=== PATIENT | male | born 1995 | race African-American/Black ===

== ENCOUNTER → 2017-08-21 | Outpatient (REF) | payer OTHER ==
[~2017-08-21] MED LIST: FLON1SPR; IBUP-1022 PO; MUCI600T37 PO; SUDA1TAB3 PO; ZYRT10TA2 PO
[2017-08-21 10:34] LABS: NON PROGRESSIVE MOTILITY (c) 11 %; PROGRESSIVE MOTILITY (a) 28 % (>=32); TOTAL MOTILITY 39 % (>=40)
[2017-08-21 10:35] LABS: % NORMAL FORMS 6 % (>=4); IMMOTILITY 61 %; SPERM# 309.1 M/Ejac (>=39); TOTAL FUNCTIONAL 12.7 M/Ejac.; TOTAL PROGRESSIVE SPERM 87.1 M/Ejac.
== END ==
LOC: M LAB REF 10:16
PROVIDERS: ATTEND Obstetrics & Gynecology
DX: Z31.41 Encounter for fertility testing (principal)

== ENCOUNTER 2017-08-22 05:18 | Emergency (ER) | payer OTHER ==
[~2017-08-22] VITALS: Ht 190.5 cm; Wt 109.0 kg
[2017-08-22] MEDS ORDERED: MUCI600T37 PO (06:13)
[2017-08-22] MEDS ORDERED: FLON1SPR (06:13)
[2017-08-22] MEDS ORDERED: IBUP-1022 PO (06:13)
[2017-08-22] MEDS ORDERED: ZYRT10TA2 PO (06:13)
[2017-08-22] MEDS ORDERED: SUDA1TAB3 PO (06:13)
[2017-08-22] MEDS ORDERED: IBUPROFEN 600 MG TAB PO ONE (06:15)
[2017-08-22 06:52] VITALS: BP 139/70
== END 2017-08-22 06:54 | disposition home or self-care (01) ==
LOC: M ED 05:18
DX: R51 Headache (principal); J30.9 Allergic rhinitis, unspecified